=== PATIENT | male | born 1990 | race American Indian/Alaskan Native ===

== ENCOUNTER 2021-09-06 11:02 | Emergency (ER) | payer SELFPAY ==
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
[2021-09-06] MEDS ORDERED: PANTOPRAZOLE 40 MG INJ IV ONE (11:48)
[2021-09-06] MEDS ORDERED: SODIUM CHLORIDE 0.9% 1000 ML 1,000 ML IV ONE (11:48)
[2021-09-06] MEDS ORDERED: ONDANSETRON 4 MG/2 ML INJ IV ONE (11:48)
[2021-09-06] MEDS ORDERED: MORPHINE 4 MG/1 ML INJ IV ONE (11:50)
[2021-09-06 12:16] LABS: Basophils % (Auto) 0.1 % (0.0-1.8); Eosinophils # (Auto) 0.1 K/mm3 (0.0-0.4); Eosinophils % (Auto) 0.9 % (0.0-4.3); Hematocrit 43.6 % (35.5-45.6); Hemoglobin 14.8 gm/dl (11.8-15.2); Lymphocytes # (Auto) 1.1 K/mm3 (1.2-5.4); Lymphocytes % (Auto) 15.4 % (13.4-35.0); Mean Corpuscular HGB Conc 34 % (32-34); Mean Corpuscular Volume 90 fl (84-94); Monocytes # (Auto) 0.4 K/mm3 (0.0-0.8); Monocytes % (Auto) 5.4 % (0.0-7.3); Platelet Count 193 K/mm3 (140-440); Red Blood Count 4.85 M/mm3 (3.65-5.03); Red Cell Distribution Width 13.3 % (13.2-15.2)
[2021-09-06 12:26] LABS: INR 0.87 (0.87-1.13)
[2021-09-06 12:39] LABS: Alanine Aminotransferase 9 units/L (7-56); Albumin 4.6 g/dL (3.9-5); BUN/Creatinine Ratio 10; Blood Urea Nitrogen 10 mg/dL (9-20); Calcium 9.6 mg/dL (8.4-10.2); Hemolysis Index 11
[2021-09-06 13:08] LABS: Bilirubin,Urine NEG (Negative); Blood,Urine NEG (Negative); Color,Urine Straw (Yellow); Protein,Urine <15 mg/dL mg/dL (Negative); Urobilinogen,Urine < 2.0 mg/dL (<2.0)
[2021-09-06 13:16] LABS: Amphetamine Screen,Urine Negative; Benzodiazepines Screen,Urine Negative; Cocaine Screen,Urine Negative; Methadone Screen,Urine Negative; Opiate Screen,Urine Negative
[2021-09-06 13:30] LABS: Cannabinoid Screen,Urine Positive
[2021-09-06 13:35] LABS: WBC,Urine < 1.0 /HPF (0.0-6.0)
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
[2021-09-06 15:06] VITALS: BP 130/85
--- NOTE | 2021-09-08 11:02 | Electrocardiograph Report ---
[facility] Test Date: 2021-09-06 Test Time: 12:02:18 Pat Name: JOÃO WATSON Department: Room: Gender: M Farm Equipment Technician: NURSE : 1990 Requested By: DOV HUBBARD Order Number: [id number] Reading MD: Rickey Holbrook Measurements Intervals [place] Rate: 52 P: 17 [place]: 183 QRS: 46 QRSD: 111 T: 38 QT: 426 QTc: 396 Interpretive Statements Sinus bradycardia No previous ECG available for comparison Electronically Signed On 09-08-2021 11:02:17 EDT by Rickey Holbrook
== END 2021-09-06 15:06 | disposition home or self-care (01) ==
LOC: ED 11:02
DX: R10.13 Epigastric pain (principal); F12.90 Cannabis use, unspecified, uncomplicated; Z68.35 Body mass index [BMI] 35.0-35.9, adult; Z91.013 Allergy to seafood; Z79.899 Other long term (current) drug therapy
CPT/HCPCS: 36415; 74177; 80053; 80307; 81001; 83690; 83735; 85025; 85610; 93005; 96361; 96374; 96375; 99284; C9113; J2270; J2405; J7030; Q9967; 80320; G0480